=== PATIENT | male | born 1945 | race Two or more races ===

== ENCOUNTER 2020-08-08 21:25 | Emergency (ER) | payer OTHER ==
[~2020-08-08] VITALS: Ht 182.9 cm; Wt 63.5 kg
[2020-08-08 21:43] VITALS: Ht 182.9 cm; Wt 63.5 kg
[2020-08-08 23:24] LABS: BASOPHIL % 0.4 % (0-2); PLATELET COUNT 246 x10^3mcL (130-400); RED CELL DISTRIBUTION WIDTH 14.2 % (11.5-14.5)
[2020-08-08 23:31] LABS: CALCIUM 9.5 mg/dL (8.5-10.1); CARBON DIOXIDE 32.9 mmol/L (21-32); CHLORIDE SERUM 100 mmol/L (98-107); CREATININE SERUM 0.9 mg/dL (0.7-1.3); GLUCOSE SERUM 96 mg/dL (74-106); POTASSIUM SERUM 3.9 mmol/L (3.5-5.1); SODIUM SERUM 136 mmol/L (136-145)
[2020-08-08 23:35] LABS: UA SPECIFIC GRAVITY 1.025 (1.005-1.035); microscopic required? YES; urine erythrocyte TRACE (NEGATIVE)
[2020-08-08 23:39] LABS: ALBUMIN 3.7 g/dL (3.4-5.0); ALT/SGPT 27 U/L (16-63); AST/SGOT 24 U/L (15-37)
[2020-08-09 00:13] LABS: AMPHETAMINE QUAL UR NONE DETECTED (See below)
[2020-08-09 00:19] LABS: ALKALINE PHOSPHATASE 81 U/L (46-116); TOTAL PROTEIN, SERUM 7.8 g/dL (6.4-8.2)
[2020-08-09 00:40] VITALS: BP 136/60
== END 2020-08-09 00:35 | disposition left against medical advice (07) ==
LOC: ED 21:25
PROVIDERS: Emergency Medicine
DX: R40.4 Transient alteration of awareness (principal); Z86.73 Personal history of transient ischemic attack (TIA), and cerebral infarction without residual deficits
CPT/HCPCS: 82962; Q0092